=== PATIENT | male | born 2000 | race African-American/Black ===

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

== ENCOUNTER 2022-07-12 22:21 | Emergency (ER) | payer MEDICAID, OTHER ==
[~2022-07-12] VITALS: Ht 180.3 cm; Wt 77.0 kg
[2022-07-12] MEDS ORDERED: IPRATROPIUM/ALBUTEROL 0.5-3(2.5)MG/3ML NEB HHN ONE (22:45)
[2022-07-12] MEDS ORDERED: PREDNISONE 20MG TABLET PO ONE (22:45)
[2022-07-12] MEDS ORDERED: ACETAMINOPHEN 325MG TABLET PO ONE (22:45)
[2022-07-13 03:02] VITALS: BP 120/66
[2022-07-13] MEDS ORDERED: PREDNISONE 20MG TABLET PO NR (03:45)
[2022-07-13] MEDS ORDERED: ACETAMINOPHEN 325MG TABLET PO NR (03:45)
[2022-07-13] MEDS ORDERED: P20 MT (04:40)
== END 2022-07-13 05:57 | disposition home or self-care (01) ==
LOC: ER 22:21
DX: J45.901 Unspecified asthma with (acute) exacerbation (principal); M79.18 Myalgia, other site; I49.3 Ventricular premature depolarization
CPT/HCPCS: 93005; 94640; 99283; J7512; Z7610